=== PATIENT | female | born 1955 | race Caucasian/White ===

== ENCOUNTER 2016-08-15 | Outpatient (CLI) | payer MEDICAID | END 2016-08-15 01:57 | disposition critical access hospital (66) | DX: M25.511 Pain in right shoulder (principal) | CPT/HCPCS: A0425; A0429 ==

== ENCOUNTER 2016-08-15 02:02 | Emergency (ER) | payer MEDICAID ==
[2016-08-15] MEDS ORDERED: KETOROLAC 60 MG/2 ML VIAL IM STA (02:19)
[2016-08-15] MEDS ORDERED: KETOROLAC 60 MG/2 ML VIAL ONE (02:31)
[2016-08-15] MEDS ORDERED: HYDROcod/ACET 5/325 Prepack 6 PO ONE ×2 (02:44→02:47)
[2016-08-15] MEDS ORDERED: HYDROcod/ACETAM 5/325 MG TABLET PO STA (02:44)
[2016-08-15] MEDS ORDERED: HYDROcod/ACETAM 5/325 MG TABLET ONE (02:47)
== END 2016-08-15 03:02 | disposition home or self-care (01) ==
DX: S42.211A Unspecified displaced fracture of surgical neck of right humerus, initial encounter for closed fracture (principal); W19.XXXA Unspecified fall, initial encounter; Y92.009 Unspecified place in unspecified non-institutional (private) residence as the place of occurrence of the external cause; I10 Essential (primary) hypertension; M79.7 Fibromyalgia; F17.200 Nicotine dependence, unspecified, uncomplicated
CPT/HCPCS: 73030; 96372; 99283; A9270

== ENCOUNTER 2016-08-24 11:25 | Day surgery (SDC) | payer MEDICAID ==
[2016-08-24] MEDS ORDERED: ceFAZolin 1 GM VIAL ONE (11:29)
[2016-08-24] MEDS ORDERED: LACTATED RINGERS 1,000 ML IV ONE (11:35)
[2016-08-24] MEDS ORDERED: BUPIVACAINE 0.25%-EPI 1:200000 PF 30 ML VIAL SUBQ ONE ×2 (12:49)
[2016-08-24] MEDS ORDERED: DEXAMETHASONE 4 MG/ML VIAL IVP ONE (13:21)
[2016-08-24] MEDS ORDERED: ONDANSETRON 4 MG/2 ML VIAL IVP ONE (13:21)
[2016-08-24] MEDS ORDERED: ceFAZolin 1 GM VIAL IV ONE (13:21)
[2016-08-24] MEDS ORDERED: LIDOCAINE-MPF 2% 5 ML VIAL IM ONE (13:21)
[2016-08-24] MEDS ORDERED: MIDAZOLAM 2 MG/2 ML VIAL IVP ONE (13:21)
[2016-08-24] MEDS ORDERED: PHENYLEPHRINE 50 MG/5 ML VIAL IV ONE (13:21)
[2016-08-24] MEDS ORDERED: HYDROmorphone 1 MG/ML SYRINGE IVP ONE (13:21)
[2016-08-24] MEDS ORDERED: PROPOFOL 200 MG/20 ML VIAL IVP ONE (13:21)
[2016-08-24] MEDS ORDERED: ACETAMINOPHEN 1,000 MG/100 ML VIAL IV ONE (13:21)
[2016-08-24] MEDS ORDERED: fentaNYL 100 MCG/2 ML VIAL IVP ONE (13:21)
[2016-08-24] MEDS ORDERED: KETOROLAC 30 MG/ML VIAL IVP ONE (13:21)
[2016-08-24] MEDS: HYDROmorphone 1 MG/ML SYRINGE ONE ×6 (14:11→15:01)
[2016-08-24] MEDS: fentaNYL 100 MCG/2 ML VIAL ONE ×3 (14:27→14:43)
[2016-08-24] MEDS ORDERED: ONDANSETRON 4 MG/2 ML VIAL ONE (14:44)
[2016-08-24] MEDS: HYDROcod/ACETAM 5/325 MG TABLET ONE ×2 (15:21→15:25)
== END 2016-08-24 11:26 | disposition home or self-care (01) ==
PROC: 0PSC04Z Reposition Right Humeral Head with Internal Fixation Device, Open Approach (ICD-10-PCS; principal; 2016-08-24 12:30)
DX: S42.221A 2-part displaced fracture of surgical neck of right humerus, initial encounter for closed fracture (principal); Z86.010 Personal history of colon polyps; R12 Heartburn; K44.9 Diaphragmatic hernia without obstruction or gangrene; I10 Essential (primary) hypertension; G47.30 Sleep apnea, unspecified; E03.9 Hypothyroidism, unspecified; M79.7 Fibromyalgia; M19.90 Unspecified osteoarthritis, unspecified site; K21.9 Gastro-esophageal reflux disease without esophagitis; G89.29 Other chronic pain; M54.9 Dorsalgia, unspecified; Z88.2 Allergy status to sulfonamides; Z79.52 Long term (current) use of systemic steroids; Z87.891 Personal history of nicotine dependence; Z79.1 Long term (current) use of non-steroidal anti-inflammatories (NSAID)
CPT/HCPCS: 23615; 73030; A9270; J0131; J1170; J7120

== ENCOUNTER 2016-08-31 09:59 | Outpatient (CLI) | payer MEDICAID | END 2016-08-31 10:00 | disposition home or self-care (01) | DX: E03.9 Hypothyroidism, unspecified (principal); I10 Essential (primary) hypertension; R90.89 Other abnormal findings on diagnostic imaging of central nervous system; M51.36 Other intervertebral disc degeneration, lumbar region; Z71.89 Other specified counseling; D75.89 Other specified diseases of blood and blood-forming organs; E34.9 Endocrine disorder, unspecified; R73.01 Impaired fasting glucose; R79.89 Other specified abnormal findings of blood chemistry ==

== ENCOUNTER 2016-09-28 09:22 | Outpatient (CLI) | payer MEDICAID | END 2016-09-28 09:23 | disposition home or self-care (01) | DX: Z78.0 Asymptomatic menopausal state (principal); M25.511 Pain in right shoulder ==

== ENCOUNTER 2016-09-28 09:36 | Outpatient (CLI) | payer MEDICAID | END 2016-09-28 09:37 | disposition home or self-care (01) | DX: M25.511 Pain in right shoulder (principal) ==

== ENCOUNTER 2016-10-20 11:29 | Outpatient (CLI) | payer MEDICAID | END 2016-10-20 11:30 | disposition home or self-care (01) | DX: S42.201D Unspecified fracture of upper end of right humerus, subsequent encounter for fracture with routine healing (principal) ==

== ENCOUNTER 2016-10-26 13:07 | Outpatient (CLI) | payer MEDICAID ==
--- NOTE | 2016-10-26 18:06 | CT Report ---
EXAM: RIGHT SHOULDER CT WITHOUT CONTRAST EXAM DATE: 10/26/2016 02:36 PM. CLINICAL HISTORY: Two-part displaced fracture of surgical neck right humerus. COMPARISON: Radiographs 10/20/2016. TECHNIQUE: Thin-section axial images were acquired of the shoulder without contrast. Post-processing: Coronal and sagittal reformats. Other: None. In accordance with CT protocol optimization, one or more of the following dose reduction techniques w ere utilized for this exam: automated exposure control, adjustment of mA and/or KV based on patient s ize, or use of iterative reconstructive technique. FINDINGS: Bones and articular surfaces: There are postsurgical changes of internal fixation of the proximal hum erus for comminuted fracture involving the surgical neck. Comminuted fracture lines are still clearly visible. No appreciable hardware loosening. No periprosthetic lucency. No hardware fracture identifi ed. Mild posterior subluxation of the humeral head with respect to the glenoid. Small glenoid margina l osteophyte formation. Osteophyte formation at the acromioclavicular joint. Soft tissues: Small bone fragments are seen within the soft tissues immediately adjacent to the anter omedial and anteroposterior aspect of the proximal humeral shaft. Musculotendinous structures grossly intact. Visualized portion of the right lung well aerated. IMPRESSION: 1. Post surgical change of internal fixation for comminuted fractures involving the surgical neck of the right humerus. No appreciable hardware complication. Fracture lines and small comminuted fragment s still clearly visualized. 2. Mild posterior subluxation of the humeral head with respect to the glenoid. [facility] Referring Provider Line: [phone] SITE ID: [id number]
== END 2016-10-26 13:08 | disposition home or self-care (01) ==
LOC: DI 13:07
PROVIDERS: ATTEND Orthopaedic Surgery
DX: S42.221D 2-part displaced fracture of surgical neck of right humerus, subsequent encounter for fracture with routine healing (principal); S43.001A Unspecified subluxation of right shoulder joint, initial encounter

== ENCOUNTER 2016-11-23 09:02 | Inpatient (IN) | payer MEDICAID ==
[~2016-11-23 09:02] MED LIST: ceFAZolin 2 GM/50 ML 50 ML IV ONE
[2016-11-23] MEDS ORDERED: LACTATED RINGERS 1,000 ML IV ONE ×3 (09:22→13:30)
[2016-11-23] MEDS ORDERED: MIDAZOLAM 2 MG/2 ML VIAL IVP ONE (11:00)
[2016-11-23] MEDS ORDERED: ROCURONIUM 50 MG/5 ML VIAL IVP ONE (11:00)
[2016-11-23] MEDS ORDERED: ePHEDrine 50 MG/ML AMP IVP ONE (11:00)
[2016-11-23] MEDS ORDERED: LIDOCAINE-MPF 2% 5 ML VIAL IM ONE (11:00)
[2016-11-23] MEDS ORDERED: fentaNYL 100 MCG/2 ML VIAL IVP ONE (11:00)
[2016-11-23] MEDS ORDERED: PROPOFOL 200 MG/20 ML VIAL IVP ONE (11:00)
[2016-11-23] MEDS ORDERED: ceFAZolin 1 GM VIAL IV ONE (11:00)
[2016-11-23] MEDS ORDERED: ROPIVACAINE 0.5% PF 20 ML AMPULE EP ONE (11:00)
[2016-11-23] MEDS ORDERED: DEXAMETHASONE 4 MG/ML VIAL IVP ONE (11:00)
[2016-11-23] MEDS ORDERED: GLYCOPYRROLATE 1 MG/5 ML VIAL IVP ONE (11:00)
[2016-11-23] MEDS ORDERED: ONDANSETRON 4 MG/2 ML VIAL IVP ONE (11:00)
[2016-11-23] MEDS ORDERED: NEOSTIGMINE 1 MG/1 ML 10 ML MDV IVP ONE (11:00)
[2016-11-23] MEDS ORDERED: LIDOCAINE 1%-EPI 1:100000 20 ML MDV SUBQ ONE (14:31)
[2016-11-23] MEDS ORDERED: SODIUM CHLORIDE FLUSH 0.9% 10 ML SYRINGE IVP PRN (14:32)
[2016-11-23] MEDS ORDERED: ACETAMINOPHEN 325 MG TABLET PO PRN (14:32)
[2016-11-23] MEDS ORDERED: CYCLOBENZAPRINE 10 MG TABLET PO PRN (14:35)
[2016-11-23] MEDS ORDERED: PANTOPRAZOLE 40 MG TABLET PO PRN (14:35)
[2016-11-23] MEDS ORDERED: TRIAMCINOLONE 0.1% CREAM 15 GM TUBE TOP PRN (14:35)
[2016-11-23] MEDS: LACTATED RINGERS 1,000 ML IV SCH (16:04)
[2016-11-23] MEDS: ceFAZolin 2 GM/50 ML 50 ML IV SCH (18:09)
[2016-11-23] MEDS: oxyCOD/ACETAMIN 5 MG/325 MG TABLET PO PRN (21:06)
[2016-11-23] MEDS: SODIUM CHLORIDE FLUSH 0.9% 10 ML SYRINGE IVP SCH (21:09)
[2016-11-24] MEDS: oxyCOD/ACETAMIN 5 MG/325 MG TABLET PO PRN ×4 (01:40→11:49)
[2016-11-24] MEDS: ceFAZolin 2 GM/50 ML 50 ML IV SCH (01:41)
[2016-11-24] MEDS: LACTATED RINGERS 1,000 ML IV SCH ×2 (01:42→11:51)
[2016-11-24] MEDS: ONDANSETRON 4 MG/2 ML VIAL IVP PRN ×2 (02:09→07:24)
[2016-11-24] MEDS: HYDROmorphone 1 MG/ML SYRINGE IVP PRN ×2 (04:14→05:45)
[2016-11-24] MEDS: SODIUM CHLORIDE FLUSH 0.9% 10 ML SYRINGE IVP SCH ×2 (05:05→08:53)
[2016-11-24] MEDS ORDERED: LEVOTHYROXINE 25 MCG TABLET PO SCH (07:00)
[2016-11-24] MEDS ORDERED: PROCHLORPERAZINE INJ 10 MG in SODIUM CHLORIDE 0.9% 50 ML IV PRN (08:21)
[2016-11-24] MEDS ORDERED: MORPHINE 2 MG/ML SYRINGE IVP PRN (08:22)
[2016-11-24] MEDS ORDERED: KETOROLAC 30 MG/ML VIAL IVP PRN (08:23)
[2016-11-24] MEDS ORDERED: LISINOPRIL 20 MG TABLET PO SCH (09:00)
[2016-11-24] MEDS ORDERED: MINOCYCLINE 100 MG PO SCH (09:00)
[2016-11-24] MEDS ORDERED: POLYETHYLENE GLYCOL 3350 17 GM PACKET PO SCH (09:00)
== END 2016-11-24 16:57 | disposition home or self-care (01) | DRG 483 ==
PROC: 0RRJ00Z Replacement of Right Shoulder Joint with Reverse Ball and Socket Synthetic Substitute, Open Approach (ICD-10-PCS; principal; 2016-11-23 10:15)
DX: S42.221K 2-part displaced fracture of surgical neck of right humerus, subsequent encounter for fracture with nonunion (principal); M94.211 Chondromalacia, right shoulder; I10 Essential (primary) hypertension; I49.9 Cardiac arrhythmia, unspecified; E78.00 Pure hypercholesterolemia, unspecified; E07.9 Disorder of thyroid, unspecified; F32.9 Major depressive disorder, single episode, unspecified; F41.9 Anxiety disorder, unspecified; K30 Functional dyspepsia

== ENCOUNTER 2016-12-08 09:20 | Outpatient (CLI) | payer MEDICAID | END 2016-12-08 09:21 | disposition home or self-care (01) | DX: R90.89 Other abnormal findings on diagnostic imaging of central nervous system (principal); E03.9 Hypothyroidism, unspecified; R79.89 Other specified abnormal findings of blood chemistry; E34.9 Endocrine disorder, unspecified; R73.01 Impaired fasting glucose; D75.89 Other specified diseases of blood and blood-forming organs; Z78.0 Asymptomatic menopausal state; R06.83 Snoring; R00.2 Palpitations; N20.0 Calculus of kidney ==

== ENCOUNTER 2017-03-18 08:08 | Outpatient (CLI) | payer MEDICAID ==
--- NOTE | 2017-03-18 12:22 | XRAY Report ---
TWO-VIEW RIGHT HUMERUS: 03/18/2017 CLINICAL INDICATION: Fracture followup. COMPARISON: 02/21/2017 FINDINGS: Frontal and lateral views of the right humerus obtained with brace in place demonstrate in crease in displacement and angulation of the mid shaft fracture. Proximal humeral prosthesis appears stable. IMPRESSION: INTERVAL INCREASE IN DISPLACEMENT AND ANGULATION OF THE MID SHAFT HUMERAL FRACTURE. JOB #: [id number] EXT JOB #:[id number]
== END 2017-03-18 08:09 | disposition home or self-care (01) ==
LOC: DI 08:08
PROVIDERS: ATTEND Orthopaedic Surgery
DX: M97.31XD Periprosthetic fracture around internal prosthetic right shoulder joint, subsequent encounter (principal)

== ENCOUNTER 2017-04-20 07:13 | Outpatient (CLI) | payer MEDICAID ==
[2017-04-20 07:44] LABS: BASOPHILS % (AUTO) 0.4 %; EOSINOPHILS # (AUTO) 0.2 10^3/uL (0.0-0.7); EOSINOPHILS % (AUTO) 3.2 %; HCT - HEMATOCRIT 45.6 % (37.0-47.0); HGB - HEMOGLOBIN 15.8 g/dL (12.0-16.0); LYMPHOCYTES # (AUTO) 2.1 10^3/uL (1.5-3.5); MEAN CORPUSCULAR HEMOGLOBIN 37.3 pg (27.0-31.0); MEAN CORPUSCULAR HGB CONC 34.7 g/dL (32.0-36.0); MEAN CORPUSCULAR VOLUME 107.7 fL (81.0-99.0); MEAN PLATELET VOLUME 9.3 fL (7.9-10.8); MONOCYTES # (AUTO) 0.6 10^3/uL (0.0-1.0); MONOCYTES % (AUTO) 9.1 %; NEUTROPHILS # (AUTO) 3.4 10^3/uL (1.5-6.6); NEUTROPHILS % (AUTO) 54.3 %; NUCLEATED RED BLOOD CELLS AUTO 0.1 /100WBC; RED BLOOD COUNT 4.23 10^6/uL (4.20-5.40); RED CELL DISTRIBUTION WIDTH 13.5 % (12.0-15.0); UNCORRECTED WHITE BLOOD COUNT 6.3 x10^3/uL; WHITE BLOOD COUNT 6.3 x10^3/uL (4.8-10.8)
[2017-04-20 07:58] LABS: ALBUMIN/GLOBULIN RATIO 1.3 (1.0-2.2); BILIRUBIN,TOTAL 0.7 mg/dL (0.2-1.0); BUN - BLOOD UREA NITROGEN 15 mg/dL (6-20); CALCIUM 9.1 mg/dL (8.5-10.3); CARBON DIOXIDE - CO2 26 mmol/L (21-32); CHLORIDE 102 mmol/L (101-111); CHOL/HDL RATIO 2.6 (<4.4); CHOLESTEROL 232 mg/dL; CREATININE 0.6 mg/dL (0.4-1.0); GFR - MDRD 102 (>89); GLUCOSE 110 mg/dL (70-100); HDL CHOLESTEROL 90 mg/dL; LDL/HDL RATIO 1.3 (<4.4); POTASSIUM 3.9 mmol/L (3.5-5.0); SODIUM 138 mmol/L (135-145); TOTAL PROTEIN 6.7 g/dL (6.7-8.2); TRIGLYCERIDES 121 mg/dL; VLDL CHOLESTEROL 24 mg/dL
== END 2017-04-20 07:14 | disposition home or self-care (01) ==
LOC: LAB 07:13
PROVIDERS: ATTEND Internal Medicine
DX: N20.0 Calculus of kidney (principal); R00.2 Palpitations; R42 Dizziness and giddiness; K75.81 Nonalcoholic steatohepatitis (NASH); Z96.611 Presence of right artificial shoulder joint; R09.81 Nasal congestion; I10 Essential (primary) hypertension; M79.7 Fibromyalgia; F41.8 Other specified anxiety disorders; G47.00 Insomnia, unspecified; R53.83 Other fatigue; E34.9 Endocrine disorder, unspecified
CPT/HCPCS: 36415; 80053; 80061; 84443; 85025

== ENCOUNTER 2017-04-21 10:35 | Outpatient (CLI) | payer MEDICAID ==
[2017-04-21 11:11] LABS: URIC ACID 4.4 mg/dL (2.6-7.2)
[2017-04-23 21:51] LABS: ALPHA 1 GLOBULIN 0.3 g/dL (0.2-0.3); ALPHA 2 GLOBULIN 0.8 g/dL (0.5-0.9); BETA 1 GLOBULIN 0.5 g/dL (0.4-0.6); BETA 2 GLOBULIN 0.3 g/dL (0.2-0.5); GAMMA GLOBULIN 0.8 g/dL (0.8-1.7)
== END 2017-04-21 10:36 | disposition home or self-care (01) ==
LOC: LAB 10:35
PROVIDERS: ATTEND Orthopaedic Surgery
DX: M97.31XD Periprosthetic fracture around internal prosthetic right shoulder joint, subsequent encounter (principal); M80.8 Other osteoporosis with current pathological fracture; M25.511 Pain in right shoulder
CPT/HCPCS: 36415; 84155; 84165; 84550; 85651; 86140

== ENCOUNTER 2017-05-31 06:13 | Inpatient (IN) | payer MEDICAID ==
[2017-05-31] MEDS ORDERED: ceFAZolin 2 GM/50 ML 2 GM/50 ML BAG IV ONE (07:11)
[2017-05-31] MEDS ORDERED: LACTATED RINGERS 1,000 ML IV ONE ×2 (07:22→11:13)
[2017-05-31] MEDS ORDERED: MIDAZOLAM 2 MG/2 ML VIAL IVP ONE (07:43)
[2017-05-31] MEDS ORDERED: LIDOCAINE-MPF 2% 5 ML VIAL IM ONE (07:43)
[2017-05-31] MEDS ORDERED: PROPOFOL 200 MG/20 ML VIAL IVP ONE (07:43)
[2017-05-31] MEDS ORDERED: TRANEXAMIC ACID 1,000 MG/10 ML VIAL IV ONE (07:43)
[2017-05-31] MEDS ORDERED: ROPIVACAINE 0.5% PF 20 ML AMPULE EP ONE (07:43)
[2017-05-31] MEDS ORDERED: ROCURONIUM 50 MG/5 ML VIAL IVP ONE (07:43)
[2017-05-31] MEDS ORDERED: ONDANSETRON 4 MG/2 ML VIAL IVP ONE (07:43)
[2017-05-31] MEDS ORDERED: DEXAMETHASONE 4 MG/ML VIAL IVP ONE (07:43)
[2017-05-31] MEDS ORDERED: fentaNYL 250 MCG/5 ML VIAL IVP ONE (07:43)
[2017-05-31] MEDS ORDERED: BUPIVACAINE 0.25%-EPI 1:200000 PF 30 ML VIAL SUBQ ONE (08:25)
--- NOTE | 2017-05-31 12:02 | OPERATIVE REPORT ---
Operative Report - General Admit Date: 05/31/17 Procedure Date: 05/31/17 Planned Procedure: ORIF right humerus periprosthetic fracture Pre-Op Diagnosis: right humerus periprosthetic fracture Procedure Performed: ORIF right humerus complicated by bone fragmentation] Removal of all internal fixation due to failure of fixation Post Op Diagnosis: Extremely comminuted right humerus periprosthetic fracture - Procedure Note Anesthesia Technique: General ET tube, Regional block IV Fluids (mL): 1,000 Estimated Blood Loss (mL): 250 Complications: progressive comminution of distal humerus, ultimately leading to removal of unstable fixation devices.
[2017-05-31] MEDS ORDERED: ACETAMINOPHEN 325 MG TABLET PO PRN (12:04)
[2017-05-31] MEDS ORDERED: ONDANSETRON 4 MG/2 ML VIAL IVP PRN (12:04)
[2017-05-31] MEDS ORDERED: oxyCOD/ACETAMIN 5 MG/325 MG TABLET PO PRN (12:04)
[2017-05-31] MEDS ORDERED: PROCHLORPERAZINE 10 MG/2 ML VIAL IVP PRN (12:04)
[2017-05-31] MEDS ORDERED: ACETAMINOPHEN 1,000 MG/100 ML 100 ML IV PRN (12:04)
[2017-05-31] MEDS ORDERED: SODIUM CHLORIDE FLUSH 0.9% 10 ML SYRINGE IVP PRN (12:04)
[2017-05-31] MEDS ORDERED: METOCLOPRAMIDE 10 MG/2 ML VIAL ONE (12:30)
[2017-05-31] MEDS ORDERED: CYCLOBENZAPRINE 10 MG TABLET PO PRN (13:06)
[2017-05-31] MEDS: ceFAZolin 2 GM/50 ML 2 GM/50 ML BAG IV SCH ×2 (14:31→22:43)
[2017-05-31] MEDS: SODIUM CHLORIDE 0.45% 1,000 ML IV SCH (14:31)
[2017-05-31] MEDS: traMADol 50 MG TABLET PO SCH ×2 (14:31→22:08)
[2017-05-31] MEDS: PANTOPRAZOLE 40 MG TABLET PO PRN (14:32)
[2017-05-31] MEDS: SODIUM CHLORIDE FLUSH 0.9% 10 ML SYRINGE IVP SCH ×2 (14:32→22:41)
[2017-05-31] MEDS: LISINOPRIL 20 MG TABLET PO SCH (14:33)
[2017-05-31] MEDS: MORPHINE 2 MG/ML SYRINGE IVP PRN ×3 (16:01→22:10)
--- NOTE | 2017-05-31 17:39 | XRAY Report ---
INTRAOPERATIVE RIGHT HUMERUS: 05/31/2017 CLINICAL INDICATION: Fracture fixation. Intraoperative image of the right humerus demonstrates side plate and cerclage wire placement. Six seconds of fluoroscopy time was provided to Dr. Dong. One spot image obtained. IMPRESSION: INTRAOPERATIVE IMAGING OF RIGHT HUMERAL FIXATION. JOB #: [id number] EXT JOB #:[id number]
[2017-06-01] MEDS: MORPHINE 2 MG/ML SYRINGE IVP PRN ×4 (00:07→09:19)
[2017-06-01] MEDS: SODIUM CHLORIDE 0.45% 1,000 ML IV SCH ×2 (01:33→10:12)
[2017-06-01] MEDS: SODIUM CHLORIDE FLUSH 0.9% 10 ML SYRINGE IVP SCH (05:56)
[2017-06-01] MEDS: traMADol 50 MG TABLET PO SCH ×2 (06:37→10:04)
[2017-06-01] MEDS ORDERED: LEVOTHYROXINE 25 MCG TABLET PO SCH (07:00)
[2017-06-01 08:00] VITALS: BP 112/70
--- NOTE | 2017-06-01 08:44 | PROVIDER PROGRESS NOTE ---
Subjective - General Admit Date: 05/31/17 Procedure Date: 05/31/17 Post Op Days: 1 - Review of Systems Wound/Incisions: positive: Drainage General: positive: Fatigue Musculoskeletal: positive: Joint pain, Joint swelling Objective - Patient Data Reviewed Vital Signs: Yes Vital Signs: Vital Signs x48h Temp Pulse Resp BP Pulse Ox 06/01/17 07:59 37.1 C 97 18 112/70 96 06/01/17 06:00 98 100/68 06/01/17 04:28 37.0 C 105 H 18 91/62 97 Weight: Weight 05/30/17 05/31/17 06/01/17 23:59 23:59 23:59 Weight (kg) 87.6 kg Intake & Output: Intake and Output Totals x24h 05/30/17 05/31/17 06/01/17 23:59 23:59 23:59 Intake Total 650 1500 Output Total 100 Balance 550 1500 - Current Medications Current Medications: Current Medications Generic Name Dose Route Start Last Admin Trade Name Freq PRN Reason Stop Dose Admin Sodium Chloride 1,000 mls @ 100 mls/hr 05/31/17 13:00 06/01/17 01:33 Normal Saline 0.45% IV 100 mls/hr .Q10H HALLEY Administration Levothyroxine Sodium 25 mcg 06/01/17 07:00 06/01/17 06:37 Synthroid PO 25 mcg QDAC HALLEY Administration Lisinopril 20 mg 05/31/17 15:00 05/31/17 14:33 Zestril PO 20 mg DAILY HALLEY Administration Morphine Sulfate 2 mg 05/31/17 12:04 06/01/17 06:41 Morphine IVP 2 mg Q2HR PRN Administration PAIN Pantoprazole Sodium 40 mg 05/31/17 12:06 05/31/17 14:32 Protonix PO 40 mg PRN PRN Administration INDIGESTION Sodium Chloride 10 ml 05/31/17 14:00 06/01/17 05:56 Normal Saline Flush 0.9% IVP Not Given Q8HR HALLEY Tramadol HCl 50 mg 05/31/17 14:00 06/01/17 06:37 Ultram PO 50 mg Q8HR HALLEY Administration - Physical Exam Wound/Incisions: positive: Drainage General Appearance: positive: No acute distress Extremities: positive: Joint swelling Neurologic/Psychiatric: positive: Motor nml, Sensation nml, Mood/affect nml Impression/Plan - Problem List Problem List: pod #1 pt would like to be discharged, and pain is under control There is some oozing of dark blood from the upper part of the incision She will require re-splinting and I have asked her to come to the office directly for this Her meds will be issued at the office. Referral will be put in place for Ortho Reconstruction.
[2017-06-01] MEDS: LISINOPRIL 20 MG TABLET PO SCH (08:47)
[2017-06-01] MEDS ORDERED: LORATADINE 10 MG TABLET PO SCH (09:00)
--- NOTE | 2017-06-01 09:05 | Discharge Plan ---
Discharge Plan Disposition: 01 Home, Self Care Condition: Fair Diet: Regular Activity Restrictions: sling/ splint/ no use of right arm Shower Restrictions: Yes (no shower) Driving Restrictions: Yes (no drive) Assistance Devices: Sling Weight Bearing: Full Weight No Smoking: If you smoke, Please STOP! Call for help. Follow-up with: Chandrakant Bolton MD [Primary Care Provider] - Rafal Dong MD [Provider Admit Priv/Credential] -
[2017-06-01] MEDS: PANTOPRAZOLE 40 MG TABLET PO PRN (09:18)
--- NOTE | 2017-06-01 12:49 | OPERATIVE REPORT ---
DATE OF SURGERY: 05/31/2017 00:00:00 PREOPERATIVE DIAGNOSIS: Right humerus mid shaft periprosthetic fracture with displacement and nonunio n. POSTOPERATIVE DIAGNOSIS: Right humerus mid shaft periprosthetic fracture with displacement and nonuni on. NAME OF PROCEDURE: Open reduction with internal fixation of the right humerus complicated by intraope rative distal fragment comminution and subsequent removal of hardware. SURGEON: Rafal Dong MD. ANESTHESIA: General and block by Carolina Eason. INDICATIONS FOR SURGERY: The patient is a 61-year-old female with a complicated history of right uppe r extremity injury beginning with a comminuted 2-part 100% displaced proximal humeral fracture treate d by ORIF with later failure of the plate and fixation, converted to a reverse shoulder arthroplasty. Shortly after that surgery, right at the beginning of use and rehabilitation of the shoulder, the lida brady suffered a fall in home causing a periprosthetic fracture of her humerus, which has been manage d over a course of a few months with bracing with no x-ray evidence of callus formation and perpetual instability noted. The patient has had diminishing pain and has never had neurologic compromise, but clearly is not progressing to union with nonoperative treatment and surgery was recommended. The pat ient did have evidence of osteopenic bone and bone density changes that were evaluated presurgery to rule out infection or malignancy in bone and these workup results were negative. FINDINGS AT SURGERY: The patient's anterolateral exposure was meticulously and with time consuming ef fort, the musculocutaneous nerve and the radial nerve were identified and protected upon entrance. Th e fracture itself showed a periprosthetic fracture with stem and cement showing in the distal part of the proximal fragment. Distally, the patient had very fragile bone initially with no identifying fra cture lines. Extensive mobilization and some stripping was required to try to safely mobilize the bon e and protect nerves and reduce it. In reducing it, the butterfly fragment was generated in the poste rior part of the humerus and the 12-hole NCB [employer] plate was applied to the humerus, cerclage d proximally with very good fixation proximally, and the screws and cerclage were applied distally. T he patient's bone behaved as egg shell and comminuted down to the flare of the distal humerus. Attemp ts at further screw fixation or cerclage wiring were unsuccessful and causing even more comminution. At this point, it was clear that there was not going to be any fixation gained with the devices at [place] and no other option for fixation, so the entire construct of the NCB 12-hole plate and the cerclag e wires were removed, as well as the few attempts at fixation screws that had all failed. The wound w as irrigated thoroughly. The bones with traction were aligned and closure was undertaken by closing t he deep layer with essentially marker sutures of PDS, so that a repeat approach would be more easily identified, and subcutaneous tissues with 0 and 2-0 Vicryl, and skin with will. Sterile dressings were applied. The patient was fitted in a well molded coaptation splint and placed into a sling and t aken to the recovery room in stable condition. ESTIMATED BLOOD LOSS FOR THE PROCEDURE: 250 mL. COMPLICATIONS: Failure of internal fixation, requiring removal of implants. PLAN: Plan postop is for the patient to be immobilized and given pain medication and careful attentio n to wound healing and await further evaluation as her block resolves to ensure neurologic status and ultimately be referred to a reconstructive elbow expert in hopes of the patient having some possibil ity of religious of the humeral integrity. JOB #: [id number] EXT JOB #:[id number]
== END 2017-06-01 10:24 | disposition home or self-care (01) | DRG 493 ==
LOC: MS2 06:13
PROVIDERS: ADMIT Orthopaedic Surgery; ATTEND Orthopaedic Surgery
PROC: 0PS Upper Bones, Reposition (ICD-10-PCS; principal; 2017-05-31 07:30)
DX: S42.351A Displaced comminuted fracture of shaft of humerus, right arm, initial encounter for closed fracture (principal); M97.31XA Periprosthetic fracture around internal prosthetic right shoulder joint, initial encounter; M85.821 Other specified disorders of bone density and structure, right upper arm; I10 Essential (primary) hypertension; E78.00 Pure hypercholesterolemia, unspecified; F32.9 Major depressive disorder, single episode, unspecified; F41.9 Anxiety disorder, unspecified; E07.9 Disorder of thyroid, unspecified; R12 Heartburn; R06.83 Snoring; Z72.0 Tobacco use

== ENCOUNTER 2017-07-18 13:36 | Outpatient (CLI) | payer MEDICAID ==
[2017-07-18 13:56] LABS: BASOPHILS % (AUTO) 0.3 %; EOSINOPHILS # (AUTO) 0.3 10^3/uL (0.0-0.7); EOSINOPHILS % (AUTO) 5.3 %; HCT - HEMATOCRIT 46.7 % (37.0-47.0); HGB - HEMOGLOBIN 15.8 g/dL (12.0-16.0); LYMPHOCYTES # (AUTO) 1.8 10^3/uL (1.5-3.5); LYMPHOCYTES % (AUTO) 38.5 %; MEAN CORPUSCULAR HEMOGLOBIN 36.2 pg (27.0-31.0); MEAN CORPUSCULAR HGB CONC 33.8 g/dL (32.0-36.0); MEAN PLATELET VOLUME 8.3 fL (7.9-10.8); MONOCYTES # (AUTO) 0.6 10^3/uL (0.0-1.0); MONOCYTES % (AUTO) 13.1 %; NEUTROPHILS % (AUTO) 42.8 %; RED BLOOD COUNT 4.37 10^6/uL (4.20-5.40); RED CELL DISTRIBUTION WIDTH 13.6 % (12.0-15.0); UNCORRECTED WHITE BLOOD COUNT 4.7 x10^3/uL; WHITE BLOOD COUNT 4.7 x10^3/uL (4.8-10.8)
[2017-07-18 14:09] LABS: ALBUMIN/GLOBULIN RATIO 1.2 (1.0-2.2); BILIRUBIN,TOTAL 0.7 mg/dL (0.2-1.0); CREATININE 0.4 mg/dL (0.4-1.0); POTASSIUM 3.9 mmol/L (3.5-5.0); TOTAL PROTEIN 6.6 g/dL (6.7-8.2)
[2017-07-18 14:50] LABS: THYROID STIMULATING HORMONE 1.49 uIU/mL (0.34-5.60)
[2017-07-20 12:42] LABS: ANA SCREEN NEGATIVE (NEGATIVE)
== END 2017-07-18 13:37 | disposition home or self-care (01) ==
LOC: LAB 13:36
PROVIDERS: ATTEND Orthopaedic Surgery
DX: R06.02 Shortness of breath (principal); R00.0 Tachycardia, unspecified; R23.1 Pallor; K75.81 Nonalcoholic steatohepatitis (NASH); I10 Essential (primary) hypertension; E03.9 Hypothyroidism, unspecified
CPT/HCPCS: 36415; 80053; 84439; 84443; 85025; 85651; 86038; 86140

== ENCOUNTER 2017-08-20 15:55 | Outpatient (CLI) | payer MEDICAID ==
[2017-08-20 16:55] LABS: BILIRUBIN,DIRECT 0.1 mg/dL (0.1-0.5); BILIRUBIN,INDIRECT 0.2 mg/dL; BILIRUBIN,TOTAL 0.3 mg/dL (0.2-1.0); CALCIUM 8.9 mg/dL (8.5-10.3); GAMMA GLUTAMYL TRANSPEPTIDASE 101 IU/L (8-38); MAGNESIUM 1.6 mg/dL (1.7-2.8); PHOSPHORUS 4.8 mg/dL (2.5-4.6)
[2017-08-20 17:21] LABS: THYROID STIMULATING HORMONE 1.06 uIU/mL (0.34-5.60)
== END 2017-08-20 15:56 | disposition home or self-care (01) ==
LOC: LAB 15:55
PROVIDERS: ATTEND Orthopaedic Surgery
DX: M81.0 Age-related osteoporosis without current pathological fracture (principal)
CPT/HCPCS: 36415; 82247; 82248; 82306; 82310; 82652; 82977; 83735; 83970; 84100; 84443

== ENCOUNTER 2017-08-28 07:42 | Outpatient (CLI) | payer MEDICAID ==
[2017-08-28 08:22] LABS: ALBUMIN 3.4 g/dL (3.2-5.5); ALBUMIN/GLOBULIN RATIO 1.2 (1.0-2.2); BILIRUBIN,TOTAL 0.3 mg/dL (0.2-1.0); CALCIUM 8.8 mg/dL (8.5-10.3); CREATININE 0.6 mg/dL (0.4-1.0); TOTAL PROTEIN 6.2 g/dL (6.7-8.2)
[2017-08-28 08:58] LABS: HB2 TOTAL 15.2 g/dL; HEMOGLOBIN A1C 0.47 g/dL
== END 2017-08-28 07:43 | disposition home or self-care (01) ==
LOC: LAB 07:42
PROVIDERS: ATTEND Internal Medicine
DX: E03.9 Hypothyroidism, unspecified (principal); N20.0 Calculus of kidney; M51.36 Other intervertebral disc degeneration, lumbar region; R79.89 Other specified abnormal findings of blood chemistry; E34.9 Endocrine disorder, unspecified; I10 Essential (primary) hypertension; R73.01 Impaired fasting glucose; D75.89 Other specified diseases of blood and blood-forming organs; R00.0 Tachycardia, unspecified; R42 Dizziness and giddiness; Z71.89 Other specified counseling; Z96.611 Presence of right artificial shoulder joint
CPT/HCPCS: 36415; 80053; 81599; 83036; 84402; 84403

== ENCOUNTER 2017-11-02 14:19 | Outpatient (CLI) | payer MEDICAID ==
[2017-11-02 14:50] LABS: PT - PROTHROMBIN TIME 11.1 secs (9.9-12.6)
[2017-11-02 14:57] LABS: ALBUMIN/GLOBULIN RATIO 1.5 (1.0-2.2); BILIRUBIN,DIRECT 0.1 mg/dL (0.1-0.5); BILIRUBIN,TOTAL 0.6 mg/dL (0.2-1.0); CALCIUM 9.2 mg/dL (8.5-10.3); CREATININE 0.5 mg/dL (0.4-1.0); TOTAL PROTEIN 6.6 g/dL (6.7-8.2)
== END 2017-11-02 14:20 | disposition home or self-care (01) ==
LOC: LAB 14:19
PROVIDERS: ATTEND Physician Assistant
DX: M85.80 Other specified disorders of bone density and structure, unspecified site (principal); M97.31XD Periprosthetic fracture around internal prosthetic right shoulder joint, subsequent encounter
CPT/HCPCS: 36415; 80053; 80076; 82248; 85610

== ENCOUNTER 2018-02-06 14:14 | Outpatient (CLI) | payer MEDICAID ==
[2018-02-06 15:18] LABS: ALBUMIN 3.8 g/dL (3.2-5.5); ALBUMIN/GLOBULIN RATIO 1.3 (1.0-2.2); BILIRUBIN,TOTAL 0.5 mg/dL (0.2-1.0); CALCIUM 9.2 mg/dL (8.5-10.3); CREATININE 0.6 mg/dL (0.4-1.0); MAGNESIUM 1.8 mg/dL (1.7-2.8); TOTAL PROTEIN 6.8 g/dL (6.7-8.2)
--- NOTE | 2018-02-06 23:29 | Ultrasound Report ---
Procedure Date: 02/06/2018 Accession Number: [id number] / [id number] Procedure: US - Duplex Upr Ext Arterial RT CPT Code: FULL RESULT: EXAM: RIGHT UPPER EXTREMITY ARTERIAL DOPPLER ULTRASOUND EXAM DATE: 02/06/2018 04:21 PM. CLINICAL HISTORY: Pain and swelling after fracture. COMPARISON: None. TECHNIQUE: Real-time sonographic vascular imaging was performed by the research associate policy, utilizing color-flow, Doppler flow, and spectral analysis. Multiple sales representative metals static images were saved for review. FINDINGS: Right Upper Extremity Velocities: Subclavian prox: 77 cm/s. Subclavian distal: 42 cm/s. Axillary mid: 46 cm/s. Brachial prox: 74 cm/s. Brachial dist: 81 cm/s. Radial prox: 54 cm/s. Radial distal: 46 cm/s. Ulnar prox: 58 cm/s Ulnar dist: 44 cm/s. IMPRESSION: No hemodynamically significant stenosis or dissection identified. [facility]
== END 2018-02-06 14:15 | disposition home or self-care (01) ==
LOC: DI 14:14
PROVIDERS: ATTEND Internal Medicine
DX: E83.42 Hypomagnesemia (principal); E55.9 Vitamin D deficiency, unspecified; E88.09 Other disorders of plasma-protein metabolism, not elsewhere classified; M19.011 Primary osteoarthritis, right shoulder; M19.021 Primary osteoarthritis, right elbow; M85.88 Other specified disorders of bone density and structure, other site; Z96.611 Presence of right artificial shoulder joint; S42.391D Other fracture of shaft of right humerus, subsequent encounter for fracture with routine healing
CPT/HCPCS: 36415; 80053; 82306; 83735

== ENCOUNTER 2018-02-06 14:16 | Outpatient (CLI) | payer MEDICAID ==
--- NOTE | 2018-02-06 15:04 | XRAY Report ---
Procedure Date: 02/06/2018 Accession Number: [id number] / [id number] Procedure: XR - Shoulder 2 View RT CPT Code: FULL RESULT: EXAM: Shoulder 2 View RT DATE: 02/06/2018 2:58 PM CLINICAL HISTORY: CLOSED FRACTURE OF SHAFT OF RT HUMERUS/LOCALIZED O COMPARISON: None. TECHNIQUE: 2 views. FINDINGS: Bones: Glenohumeral joint replacement is in place. No acute fracture. Joints: Glenohumeral joint replacement in place. Degenerative changes of the acromioclavicular joint. Soft tissues: The visualized hemithorax is unremarkable. No soft tissue swelling. IMPRESSION: Right glenohumeral joint replacement. No evidence of fracture or hardware complication. Degenerative changes in the acromioclavicular joint. [facility]
--- NOTE | 2018-02-06 15:07 | XRAY Report ---
Procedure Date: 02/06/2018 Accession Number: [id number] / [id number] Procedure: XR - Humerus RT CPT Code: FULL RESULT: EXAM: Humerus RT DATE: 02/06/2018 2:58 PM CLINICAL HISTORY: CLOSED FRACTURE OF SHAFT OF RT HUMERUS/LOCALIZED O COMPARISON: 07/25/2017 TECHNIQUE: 2 views. FINDINGS: Bones: There has been continued destruction and resorption of the distal humeral shaft, with no evidence of contiguous bone. Joints: Right humeral head replacement. Degenerative changes in the elbow joint. Soft Tissues: Normal. No soft tissue swelling. IMPRESSION: Continued destruction and resorption of the distal humeral shaft. [facility]
--- NOTE | 2018-02-06 15:07 | XRAY Report ---
Procedure Date: 02/06/2018 Accession Number: [id number] / [id number] Procedure: XR - Forearm RT CPT Code: FULL RESULT: EXAM: Forearm RT DATE: 02/06/2018 2:58 PM CLINICAL HISTORY: CLOSED FRACTURE OF SHAFT OF RT HUMERUS/LOCALIZED O COMPARISON: None. TECHNIQUE: 2 views. FINDINGS: Bones: Osteopenia. No evidence of forearm fracture. Joints: Visualized portions of the wrist and elbow joints are unremarkable. Soft Tissues: Normal. No soft tissue swelling. IMPRESSION: Osteopenia. No evidence of forearm fracture. [facility]
== END 2018-02-06 14:17 | disposition home or self-care (01) ==
LOC: DI 14:16
PROVIDERS: ATTEND Orthopaedic Surgery
DX: M19.011 Primary osteoarthritis, right shoulder (principal); M19.021 Primary osteoarthritis, right elbow; M85.88 Other specified disorders of bone density and structure, other site; Z96.611 Presence of right artificial shoulder joint; S42.391D Other fracture of shaft of right humerus, subsequent encounter for fracture with routine healing

== ENCOUNTER 2018-06-26 09:09 | Outpatient (CLI) | payer MEDICAID ==
[2018-06-26 09:53] LABS: BASOPHILS # (AUTO) 0.1 10^3/uL (0.0-0.1); BASOPHILS % (AUTO) 1.4 %; EOSINOPHILS # (AUTO) 0.1 10^3/uL (0.0-0.7); EOSINOPHILS % (AUTO) 2.2 %; HGB - HEMOGLOBIN 16.7 g/dL (12.0-16.0); LYMPHOCYTES # (AUTO) 1.3 10^3/uL (1.5-3.5); LYMPHOCYTES % (AUTO) 23.9 %; MEAN CORPUSCULAR HEMOGLOBIN 37.6 pg (27.0-31.0); MEAN CORPUSCULAR HGB CONC 35.1 g/dL (32.0-36.0); MEAN CORPUSCULAR VOLUME 107.3 fL (81.0-99.0); MEAN PLATELET VOLUME 8.8 fL (7.9-10.8); MONOCYTES # (AUTO) 0.7 10^3/uL (0.0-1.0); MONOCYTES % (AUTO) 12.6 %; NEUTROPHILS # (AUTO) 3.2 10^3/uL (1.5-6.6); NEUTROPHILS % (AUTO) 59.9 %; PLT - PLATELET COUNT 142 10^3/uL (130-450); RED BLOOD COUNT 4.44 10^6/uL (4.20-5.40); RED CELL DISTRIBUTION WIDTH 13.8 % (12.0-15.0); WHITE BLOOD COUNT 5.4 x10^3/uL (4.8-10.8)
[2018-06-26 10:11] LABS: ALBUMIN 3.8 g/dL (3.2-5.5); ALBUMIN/GLOBULIN RATIO 1.2 (1.0-2.2); ALKALINE PHOSPHATASE 134 IU/L (42-121); ALT ALANINE AMINOTRANSFERASE 129 IU/L (10-60); AST ASPARTATE AMINOTRANSFERASE 199 IU/L (10-42); BILIRUBIN,TOTAL 1.3 mg/dL (0.2-1.0); BUN - BLOOD UREA NITROGEN 9 mg/dL (6-20); CALCIUM 9.2 mg/dL (8.5-10.3); CARBON DIOXIDE - CO2 28 mmol/L (21-32); CHLORIDE 100 mmol/L (101-111); CHOL/HDL RATIO 2.9 (<4.4); CHOLESTEROL 252 mg/dL; CREATININE 0.6 mg/dL (0.4-1.0); GFR - MDRD 102 (>89); GLUCOSE 111 mg/dL (70-100); HDL CHOLESTEROL 88 mg/dL; LDL CHOLESTEROL,CALCULATED 140 mg/dL; LDL/HDL RATIO 1.6 (<4.4); MAGNESIUM 1.7 mg/dL (1.7-2.8); SODIUM 138 mmol/L (135-145); TOTAL PROTEIN 6.9 g/dL (6.7-8.2); VLDL CHOLESTEROL 24 mg/dL
== END 2018-06-26 09:10 | disposition home or self-care (01) ==
LOC: LAB 09:09
PROVIDERS: ATTEND Internal Medicine
DX: I10 Essential (primary) hypertension (principal); E83.42 Hypomagnesemia
CPT/HCPCS: 36415; 80053; 80061; 83721; 83735; 85025

== ENCOUNTER 2018-06-28 08:25 | Outpatient (CLI) | payer MEDICAID ==
--- NOTE | 2018-06-29 15:40 | Mammography Report ---
Reason: SCREENING MAMMO Procedure Date: 06/28/2018 Accession Number: [id number] / [id number] Procedure: [facility] - Screening Mammo w/Ben CPT Code: FULL RESULT: EXAM: Screening Mammo w/Ben DATE: 06/28/2018 8:53 AM CLINICAL HISTORY: Routine screening. TECHNIQUE: Bilateral CC and MLO views were obtained. COMPARISON: 06/07/2016 through 10/11/2012 FINDINGS: The breasts demonstrate scattered fibroglandular densities bilaterally. Bilateral breasts: There are no suspicious masses, calcifications or areas of distortion. IMPRESSION: Negative examination RECOMMENDATION: Routine annual screening unless otherwise clinically indicated. BI-RADS CATEGORY 1: Negative STANDARD QUALIFYING STATEMENTS: 1. This examination was not reviewed with the aid of Computer-Aided Detection (CAD). 2. A negative or benign imaging report should not preclude biopsy if clinically suspicious findings are present. 3. Dense breasts may obscure an underlying neoplasm. 4. This examination was reviewed with the aid of 3D breast imaging (tomosynthesis).
== END 2018-06-28 08:26 | disposition home or self-care (01) ==
LOC: DI 08:25
PROVIDERS: ATTEND Internal Medicine
DX: Z12.31 Encounter for screening mammogram for malignant neoplasm of breast (principal)
CPT/HCPCS: 77063; 77067

== ENCOUNTER 2018-08-11 17:56 | Outpatient (CLI) | payer MEDICAID ==
--- NOTE | 2018-08-14 10:24 | Ultrasound Report ---
Reason: DECREASED PEDAL PULSES Procedure Date: 08/11/2018 Accession Number: [id number] / [id number] Procedure: US - Duplex Lwr Ext Arterial Bilat CPT Code: FULL RESULT: EXAM: Bilateral Lower Extremity Arterial Doppler Ultrasound EXAM DATE: 08/11/2018 07:00 PM. CLINICAL HISTORY: DECREASED PEDAL PULSES. COMPARISON: None. TECHNIQUE: Real-time sonographic vascular imaging was performed by the control panel operator crude unit, utilizing color-flow, Doppler flow, and spectral analysis. Multiple medical representative static images were saved for review. FINDINGS: Normal triphasic waveforms are seen throughout both lower extremity arterial systems with three-vessel patency to the ankle bilaterally and good flow in both dorsalis pedis arteries. Transcription to insert worksheet here. IMPRESSION: Normal arterial duplex interrogation and normal MYESHA bilaterally. [facility] ADDENDUM: 08/18/18 14:02 Right Lower Extremity: FLOWER PICKER: PSV 80.7 cm/sec. PSFA: PSV 87.9 cm/sec. MSFA: PSV 93.5 cm/sec. DSFA: PSV 90.7 cm/sec. PFA: PSV 76.7 cm/sec. POP: PSV 51.5 cm/sec. ZOILA: PSV 54.3 cm/sec. SENIOR PHARMACY TECHNICIAN: PSV 48.2 cm/sec. PB: PSV 53.7 cm/sec. DPA: PSV 45.9 cm/sec. Left Lower Extremity: FLOWER PICKER: PSV 109.2 cm/sec. PSFA: PSV 92.4 cm/sec. MSFA: PSV 91.5 cm/sec. DSFA: PSV 89.2 cm/sec. PFA: PSV 72.5 cm/sec. POP: PSV 56.2 cm/sec. ZOILA: PSV 50.0 cm/sec. SENIOR PHARMACY TECHNICIAN: PSV 52.3 cm/sec. PB: PSV 45.1 cm/sec. DPA: PSV 30.0 cm/sec. Systolic Pressures Right Brachial: 178/88 Right Ankle: 187/90 Left Brachial: 165/90 Left Ankle: 177/100 Ankle/Arm Index Right: 1.05 Left: 1.07
== END 2018-08-11 17:57 | disposition home or self-care (01) ==
LOC: DI 17:56
PROVIDERS: ATTEND Anesthesiology
DX: R09.89 Other specified symptoms and signs involving the circulatory and respiratory systems (principal)
CPT/HCPCS: 93925

== ENCOUNTER 2018-10-25 17:02 | Outpatient (CLI) | payer MEDICARE, MEDICAID ==
[2018-10-25 17:15] LABS: BASOPHILS # (AUTO) 0.1 10^3/uL (0.0-0.1); BASOPHILS % (AUTO) 1.2 %; EOSINOPHILS # (AUTO) 0.1 10^3/uL (0.0-0.7); EOSINOPHILS % (AUTO) 1.1 %; HGB - HEMOGLOBIN 15.9 g/dL (12.0-16.0); LYMPHOCYTES # (AUTO) 2.6 10^3/uL (1.5-3.5); LYMPHOCYTES % (AUTO) 31.4 %; MEAN CORPUSCULAR HEMOGLOBIN 34.2 pg (27.0-31.0); MEAN CORPUSCULAR HGB CONC 33.6 g/dL (32.0-36.0); MEAN CORPUSCULAR VOLUME 101.6 fL (81.0-99.0); MEAN PLATELET VOLUME 9.2 fL (7.9-10.8); MONOCYTES # (AUTO) 0.8 10^3/uL (0.0-1.0); MONOCYTES % (AUTO) 9.5 %; NEUTROPHILS # (AUTO) 4.8 10^3/uL (1.5-6.6); NEUTROPHILS % (AUTO) 56.8 %; PLT - PLATELET COUNT 197 10^3/uL (130-450); RED BLOOD COUNT 4.65 10^6/uL (4.20-5.40); WHITE BLOOD COUNT 8.4 x10^3/uL (4.8-10.8)
[2018-10-25 17:29] LABS: ALBUMIN 3.9 g/dL (3.2-5.5); ALBUMIN/GLOBULIN RATIO 1.2 (1.0-2.2); BILIRUBIN,TOTAL 0.4 mg/dL (0.2-1.0); CALCIUM 9.2 mg/dL (8.5-10.3); CREATININE 0.6 mg/dL (0.4-1.0); TOTAL PROTEIN 7.1 g/dL (6.7-8.2)
== END 2018-10-25 17:03 | disposition home or self-care (01) ==
LOC: LAB 17:02
PROVIDERS: ATTEND Internal Medicine
DX: D75.1 Secondary polycythemia (principal); I10 Essential (primary) hypertension; Z78.9 Other specified health status
CPT/HCPCS: 36415; 80053; 85025

== ENCOUNTER 2018-11-20 11:07 | Outpatient (CLI) | payer MEDICARE, MEDICAID ==
[2018-11-20] MEDS ORDERED: IOVERSOL 320 100 ML VIAL IVP ONE ×2 (11:26→17:00)
[2018-11-20] MEDS ORDERED: IOPAMIDOL-300 50 ML VIAL ONE (11:26)
--- NOTE | 2018-11-20 15:41 | CT Report ---
Reason: LIVEDO RETICULARIS Procedure Date: 11/20/2018 Accession Number: [id number] / [id number] Procedure: CT - Abdomen/Pelvis W CPT Code: FULL RESULT: EXAM: CT ABDOMEN AND PELVIS WITH CONTRAST. EXAM DATE: 11/20/2018 01:20 PM. CLINICAL HISTORY: Livedo reticularis. COMPARISONS: ABDOMEN/PELVIS W/ 08/23/2013 5:18 PM. TECHNIQUE: Routine helical CT imaging was performed through the abdomen and pelvis. IV contrast: Isovue-300 100 mL. Enteric contrast: Yes. Reconstructions: Coronal and sagittal. In accordance with CT protocol optimization, one or more of the following dose reduction techniques were utilized for this exam: automated exposure control, adjustment of mA and/or KV based on patient size, or use of iterative reconstructive technique. FINDINGS: Lung Bases: Unremarkable. Liver: Relatively hypoattenuating with mild sparing in the gallbladder region, mild steatosis. Gallbladder/Bile Ducts: Unremarkable. Spleen: Normal. Pancreas: Normal. Adrenal Glands: Normal. Kidneys: 0.8 cm nonobstructing left lower pole calculus. No hydronephrosis. Peritoneal Cavity/Bowel: No bowel obstruction. No free fluid, free air or adenopathy. No masses or acute inflammatory process. The appendix is well visualized and normal. Pelvic Organs: Surgical clips are seen along both fallopian tubes with ovaries still visualized. Punctate hyperdensities are seen in the left ovary. Vasculature: Atherosclerotic disease without aneurysm. Bones: No aggressive osseous lesions. Other: None. IMPRESSION: Nonobstructing left lower pole renal calculus, 0.8 cm. Suspect prior tubal ligation. Punctate hyperdensities in the left ovary may represent a small dermoid which is not well seen. If this is of clinical relevance, consider pelvic ultrasound. [facility]
[2018-11-20] MEDS ORDERED: IOPAMIDOL-300 50 ML VIAL PO ONE (17:00)
== END 2018-11-20 11:08 | disposition home or self-care (01) ==
LOC: DI 11:07
PROVIDERS: ATTEND Student in an Organized Health Care Education/Training Program
DX: R23.1 Pallor (principal); N20.0 Calculus of kidney
CPT/HCPCS: 74177; Q9967

== ENCOUNTER 2019-02-27 10:09 | Outpatient (CLI) | payer MEDICARE, MEDICAID ==
[2019-02-27 10:51] LABS: BASOPHILS # (AUTO) 0.1 10^3/uL (0.0-0.1); EOSINOPHILS # (AUTO) 0.2 10^3/uL (0.0-0.7); EOSINOPHILS % (AUTO) 3.1 %; HGB - HEMOGLOBIN 16.1 g/dL (12.0-16.0); LYMPHOCYTES # (AUTO) 1.1 10^3/uL (1.5-3.5); LYMPHOCYTES % (AUTO) 15.3 %; MEAN CORPUSCULAR HEMOGLOBIN 35.5 pg (27.0-31.0); MEAN CORPUSCULAR HGB CONC 33.3 g/dL (32.0-36.0); MEAN CORPUSCULAR VOLUME 106.6 fL (81.0-99.0); MEAN PLATELET VOLUME 10.9 fL (7.9-10.8); MONOCYTES # (AUTO) 0.8 10^3/uL (0.0-1.0); NEUTROPHILS % (AUTO) 68.9 %; PLT - PLATELET COUNT 160 10^3/uL (130-450); RED BLOOD COUNT 4.53 10^6/uL (4.20-5.40); RED CELL DISTRIBUTION WIDTH 13.2 % (12.0-15.0); WHITE BLOOD COUNT 7.2 x10^3/uL (4.8-10.8)
[2019-02-27 11:26] LABS: ALBUMIN 3.4 g/dL (3.2-5.5); ALBUMIN/GLOBULIN RATIO 1.1 (1.0-2.2); BILIRUBIN,TOTAL 0.7 mg/dL (0.2-1.0); CALCIUM 9.1 mg/dL (8.5-10.3); CREATININE 0.5 mg/dL (0.4-1.0); TOTAL PROTEIN 6.6 g/dL (6.7-8.2)
== END 2019-02-27 10:10 | disposition home or self-care (01) ==
LOC: LAB 10:09
PROVIDERS: ATTEND Internal Medicine
DX: I10 Essential (primary) hypertension (principal); R94.5 Abnormal results of liver function studies; E03.9 Hypothyroidism, unspecified
CPT/HCPCS: 36415; 80053; 85025

== ENCOUNTER 2019-03-18 16:03 | Emergency (ER) | payer MEDICARE, MEDICAID ==
[2019-03-18 16:52] LABS: BASOPHILS # (AUTO) 0.1 10^3/uL (0.0-0.1); BASOPHILS % (AUTO) 1.1 %; EOSINOPHILS # (AUTO) 0.2 10^3/uL (0.0-0.7); EOSINOPHILS % (AUTO) 2.6 %; HGB - HEMOGLOBIN 16.9 g/dL (12.0-16.0); LYMPHOCYTES # (AUTO) 1.6 10^3/uL (1.5-3.5); LYMPHOCYTES % (AUTO) 21.7 %; MEAN CORPUSCULAR HEMOGLOBIN 35.6 pg (27.0-31.0); MEAN CORPUSCULAR HGB CONC 33.9 g/dL (32.0-36.0); MEAN CORPUSCULAR VOLUME 104.8 fL (81.0-99.0); MEAN PLATELET VOLUME 10.5 fL (7.9-10.8); MONOCYTES # (AUTO) 0.8 10^3/uL (0.0-1.0); MONOCYTES % (AUTO) 10.6 %; NEUTROPHILS # (AUTO) 4.8 10^3/uL (1.5-6.6); NEUTROPHILS % (AUTO) 63.3 %; PLT - PLATELET COUNT 185 10^3/uL (130-450); RED BLOOD COUNT 4.75 10^6/uL (4.20-5.40); RED CELL DISTRIBUTION WIDTH 12.9 % (12.0-15.0); WHITE BLOOD COUNT 7.6 x10^3/uL (4.8-10.8)
--- NOTE | 2019-03-18 16:54 | XRAY Report ---
Reason: Cp Procedure Date: 03/18/2019 Accession Number: [id number] / [id number] Procedure: XR - Chest 1 View X-Ray CPT Code: 28801 FULL RESULT: EXAM: CHEST RADIOGRAPHY EXAM DATE: 03/18/2019 04:40 PM. CLINICAL HISTORY: Chest pain. COMPARISON: CHEST 2 VIEW PA/LAT 05/23/2016 8:51 PM. TECHNIQUE: 1 view. FINDINGS: Lungs/Pleura: Mild bibasilar linear opacities again noted, suspect scarring or atelectasis. No consolidation, airspace disease, pleural effusion or pneumothorax. Mediastinum: Within exam limitations, the cardiomediastinal contour is normal. Other: New right shoulder arthroplasty. IMPRESSION: No acute cardiopulmonary disease seen. [facility]
[2019-03-18] MEDS ORDERED: SODIUM CHLORIDE 0.9% 1,000 ML IV ONE (17:02)
[2019-03-18 17:05] LABS: ALBUMIN 3.5 g/dL (3.2-5.5); ALBUMIN/GLOBULIN RATIO 1.1 (1.0-2.2); BILIRUBIN,TOTAL 0.5 mg/dL (0.2-1.0); CALCIUM 9.5 mg/dL (8.5-10.3); CREATININE 0.6 mg/dL (0.4-1.0); TOTAL PROTEIN 6.8 g/dL (6.7-8.2)
--- NOTE | 2019-03-18 17:23 | ED Physician Documentation ---
History of Present Illness - Stated complaint Stated Complaint: CP/NAUSEA/DIZZY - Chief complaint Chief Complaint: Cardiac - History obtained from History obtained from: Patient, Family - History of Present Illness Timing: How many weeks ago (several) Pain level max: 4 Pain level now: 3 - Additonal information Additional information: 63-year-old female presents to the emergency department complaining of chest pain for the past 2 to 3 days. Sometimes it is on her back, sometimes it is in her chest. She states that she has had several of these symptoms for months to years. She states she has had extensive work-ups in the past of all been negative. She has been evaluated by cardiology for her resting sinus tachycardia, she states that she was placed on metoprolol for this at one time. She states that she often feels sweaty during the day. She will also feel out of breath walking up the stairs. No recent illness or travel. Her significant other is currently undergoing chemotherapy. She feels like these represent panic attacks. She was brought in today by her sister. Better with rest, worse with exertion. Review of Systems Ten Systems: 10 systems reviewed and negative Constitutional: denies: Fever, Chills Ears: denies: Ear pain Nose: denies: Rhinorrhea / runny nose, Congestion Throat: denies: Sore throat Respiratory: denies: Cough GI: denies: Vomiting, Diarrhea Skin: denies: Rash Musculoskeletal: denies: Neck pain, Back pain Neurologic: denies: Headache PD PAST MEDICAL HISTORY - Past Medical History Past Medical History: Yes Cardiovascular: Hypertension Respiratory: Emphysema, Sleep apnea Neuro: None Endocrine/Autoimmune: HyPOthyroidism GI: GERD, Colon polyps ISSUE CLERK: None : Kidney stones HEENT: Chronic vision loss Psych: Depression, Anxiety Musculoskeletal: Osteoarthritis, Fibromyalgia, Other Derm: Other - Past Surgical History Past Surgical History: Yes General: Colonoscopy Ortho: Other /ISSUE CLERK: Tubal ligation HEENT: Tonsil/Adenoidectomy - Present Medications Home Medications: Ambulatory Orders Medication Instructions Recorded Confirmed Levothyroxine [Synthroid] 25 mcg PO QDAC 10/14/14 05/23/17 Omeprazole [PriLOSEC] 20 mg PO PRN PRN 06/09/15 05/31/17 Lisinopril 20 mg PO DAILY 05/11/16 05/31/17 Cyclobenzaprine [Flexeril] 5 - 20 mg PO QPM PRN 05/12/16 05/23/17 Celecoxib [Celebrex] 200 mg PO DAILY 08/23/16 05/31/17 Acetaminophen [Tylenol] 650 - 975 mg PO Q4HR PRN #0 tablet 11/24/16 05/23/17 Hydrocodone/Acetaminophen 1 tab PO Q6H PRN 05/31/17 05/31/17 [Hydrocodone-Acetamin 5-325 mg] Loratadine [Claritin] 10 mg PO DAILY 05/31/17 05/31/17 Acetaminophen [Tylenol] 650 - 975 mg PO Q4HR PRN tablet 06/01/17 Cyclobenzaprine [Flexeril] 15 mg PO TID PRN tablet 06/01/17 Levothyroxine [Synthroid] 25 mcg PO QDAC tablet 06/01/17 Albuterol Sulf [Ventolin Hfa 1 - 2 puffs INH Q4HR PRN #1 inhaler 03/18/19 Inhaler] predniSONE [Deltasone] 10 mg PO [id number] #42 tab 03/18/19 - Allergies Allergies/Adverse Reactions: Allergies Allergy/AdvReac Type Severity Reaction Status Date / Time Sulfa (Sulfonamide Allergy Intermediate Rash Verified 03/18/19 16:15 Antibiotics) - Social History Does the pt smoke?: Yes Smoking Status: Current every day smoker Does the pt drink ETOH?: Yes Does the pt have substance abuse?: No - Immunizations Immunizations are current?: Yes - POLST Patient has POLST: No PD ED PE NORMAL - Vitals Vital signs reviewed: Yes - General General: Alert and oriented X 3, No acute distress - HEENT HEENT: PERRL, Moist mucous membranes - Neck Neck: Supple, no meningeal sign - Cardiac Cardiac: RRR, No murmur, Strong equal pulses - Respiratory Respiratory: No respiratory distress, Clear bilaterally - Abdomen Abdomen: Soft, Non tender, Non distended - Derm Derm: Warm and dry - Extremities Extremities: No edema, Other (Dark color to the feet, but good pulses. Cool to the touch. Patient states chronic and no change) - Neuro Neuro: Alert and oriented X 3 - Psych Psych: Normal mood, Normal affect Results - Vitals Vitals: Vital Signs - 24 hr 03/18/19 03/18/19 03/18/19 16:08 16:45 17:07 Temperature 36.5 C Heart Rate 105 H 90 Respiratory 17 18 Rate Blood Pressure 119/76 129/85 H Blood Pressure 126/85 H [Left] O2 Saturation 99 97 03/18/19 03/18/19 03/18/19 17:15 17:30 18:30 Temperature Heart Rate 72 73 71 Respiratory 17 16 19 Rate Blood Pressure 126/85 H 116/83 H 128/76 Blood Pressure [Left] O2 Saturation 98 97 100 03/18/19 03/18/19 03/18/19 19:00 19:30 19:35 Temperature Heart Rate 72 77 79 Respiratory 20 15 15 Rate Blood Pressure 140/74 H 140/78 H Blood Pressure [Left] O2 Saturation 100 100 Oxygen O2 Source Room air - EKG (time done) 1614 Rate: Rate (enter#) (105) Rhythm: Sinus tachycardia [place]: Normal Intervals: Normal UT QRS: Normal Ischemia: Normal ST segments - Labs Labs: Laboratory Tests 03/18/19 03/18/19 03/18/19 16:46 16:46 16:46 WBC 7.6 RBC 4.75 Hgb 16.9 H Hct 49.8 H MCV 104.8 H MCH 35.6 H MCHC 33.9 RDW 12.9 Plt Count 185 MPV 10.5 Neut # (Auto) 4.8 Lymph # (Auto) 1.6 [place] # (Auto) 0.8 Eos # (Auto) 0.2 Baso # (Auto) 0.1 Absolute Nucleated RBC 0.00 Nucleated RBC % 0.0 D-Dimer Sodium 140 Potassium 4.4 Chloride 104 Carbon Dioxide 23 Anion Gap 13.0 BUN 9 Creatinine 0.6 Estimated GFR (MDRD) 102 Glucose 112 H Calcium 9.5 Total Bilirubin 0.5 AST 47 H ALT 35 Alkaline Phosphatase 86 Troponin I < 0.04 Troponin I High Sens Total Protein 6.8 Albumin 3.5 Globulin 3.3 Albumin/Globulin Ratio 1.1 Lipase 38 Urine Color Urine Clarity Urine pH Ur Specific [place] Urine Protein Urine Glucose (UA) Urine Ketones Urine Occult Blood Urine Nitrite Urine Bilirubin Urine Urobilinogen Ur Leukocyte Esterase Ur Microscopic Review Urine Culture Comments Ethyl Alcohol 03/18/19 03/18/19 03/18/19 16:46 16:46 16:46 WBC RBC Hgb Hct MCV MCH MCHC RDW Plt Count MPV Neut # (Auto) Lymph # (Auto) [place] # (Auto) Eos # (Auto) Baso # (Auto) Absolute Nucleated RBC Nucleated RBC % D-Dimer 321.4 H Sodium Potassium Chloride Carbon Dioxide Anion Gap BUN Creatinine Estimated GFR (MDRD) Glucose Calcium Total Bilirubin AST ALT Alkaline Phosphatase Troponin I Troponin I High Sens 3.6 Total Protein Albumin Globulin Albumin/Globulin Ratio Lipase Urine Color Urine Clarity Urine pH Ur Specific [place] Urine Protein Urine Glucose (UA) Urine Ketones Urine Occult Blood Urine Nitrite Urine Bilirubin Urine Urobilinogen Ur Leukocyte Esterase Ur Microscopic Review Urine Culture Comments Ethyl Alcohol 7.3 03/18/19 19:07 WBC RBC Hgb Hct MCV MCH MCHC RDW Plt Count MPV Neut # (Auto) Lymph # (Auto) [place] # (Auto) Eos # (Auto) Baso # (Auto) Absolute Nucleated RBC Nucleated RBC % D-Dimer Sodium Potassium Chloride Carbon Dioxide Anion Gap BUN Creatinine Estimated GFR (MDRD) Glucose Calcium Total Bilirubin AST ALT Alkaline Phosphatase Troponin I Troponin I High Sens Total Protein Albumin Globulin Albumin/Globulin Ratio Lipase Urine Color YELLOW Urine Clarity CLEAR Urine pH 6.0 Ur Specific [place] <=1.005 Urine Protein NEGATIVE Urine Glucose (UA) NEGATIVE Urine Ketones NEGATIVE Urine Occult Blood NEGATIVE Urine Nitrite NEGATIVE Urine Bilirubin NEGATIVE Urine Urobilinogen 0.2 (NORMAL) Ur Leukocyte Esterase NEGATIVE Ur Microscopic Review NOT INDICATED Urine Culture Comments NOT INDICATED Ethyl Alcohol - Rads (name of study) cxr Radiology: Prelim report reviewed, EMP read contemporaneously, See rad report (No acute cardiopulmonary disease seen. ) CT pulm angio Radiology: Prelim report reviewed, EMP read contemporaneously, See rad report (No evidence of acute pulmonary embolus. Centrilobular emphysema. Probable mild hepatic steatosis.) PD MEDICAL DECISION MAKING - ED course Complexity details: reviewed results, re-evaluated patient, considered differential (No ST elevation [place], no aortic dissection, no PE, no tension pneumothorax, no aortic aneurysm), d/w patient, d/w family ED course: 63-year-old female presents to the emergency department with difficulty breathing over the past few days. Also the chest and back pain. No hypoxia. No respiratory distress. Appears to have central lobar emphysema on CT Given a DuoNeb treatment. Feels slightly better. Will place on steroids and inhalers for home. Has never used inhalers before. Recommend that she quit smoking. We will have her follow-up with her doctor for further care. Patient counseled regarding signs and symptoms for which I believe and urgent re-evaluation would be necessary. Patient with good understanding of and agreement to plan and is c omfortable going home at this time This document was made in part using voice recognition software. While efforts are made to proofread this document, sound alike and grammatical errors may occur. Departure - Departure Disposition: 01 Home, Self Care Clinical Impression: Dehydration COPD (chronic obstructive pulmonary disease) Qualifiers: COPD type: unspecified COPD Qualified Code(s): J44.9 - Chronic obstructive pulmonary disease, unspecified Condition: Good Instructions: ED COPD Flare Follow-Up: Chandrakant Bolton MD [Primary Care Provider] - Within 1 week Prescriptions: Albuterol Sulf [Ventolin Hfa Inhaler] 1 - 2 puffs INH Q4HR PRN #1 inhaler PRN Reason: Shortness Of Air/Wheezing predniSONE [Deltasone] 10 mg PO [id number] #42 tab Comments: Use the medications as prescribed. Return if you worsen. Follow-up with your doctor for further care. Discharge Date/Time: 03/18/19 19:54
[2019-03-18] MEDS ORDERED: IOVERSOL 320 100 ML VIAL IVP ONE ×2 (17:46→18:02)
--- NOTE | 2019-03-18 18:22 | CT Report ---
Reason: dyspnea, poss PE Procedure Date: 03/18/2019 Accession Number: [id number] / [id number] Procedure: CT - ANGIO CHEST W/WO CPT Code: FULL RESULT: EXAM: CT ANGIOGRAM CHEST EXAM DATE: 03/18/2019 06:01 PM. CLINICAL HISTORY: Dyspnea, poss PE. COMPARISON: CHEST ANGIO 05/23/2016 10:18 PM CHEST 1 VIEW 03/18/2019 4:27 PM. TECHNIQUE: Routine helical imaging was performed through the chest in the pulmonary arterial phase. IV Contrast: OPTI 320 80 mL. Reconstructions: Coronal 3-D MIP reconstructions.Sagittal and coronal. In accordance with CT protocol optimization, one or more of the following dose reduction techniques were utilized for this exam: automated exposure control, adjustment of mA and/or KV based on patient size, or use of iterative reconstructive technique. FINDINGS: Pulmonary Arteries: Diagnostic quality: Adequate through the segmental arteries. No evidence for acute pulmonary emboli. Lungs/Pleura: No consolidation, pleural effusion, or pneumothorax. Linear scarring/atelectasis in the right middle lobe and lingula. Centrilobular emphysema. Mild diffuse prominence of the pulmonary interstitium likely related to chronic pulmonary disease. Mediastinum: Heart size is normal. No pericardial effusion. No mediastinal lymphadenopathy. Thoracic Aorta: Normal in course and caliber. Upper Abdomen: Mild low-attenuation of the liver. Other: The bones are osteopenic. No acute fracture or dislocation. Schmorl nodes involving the superior endplates of T11 and T12. IMPRESSION: No evidence of acute pulmonary embolus. Centrilobular emphysema. Probable mild hepatic steatosis. RADIA
[2019-03-18 19:13] LABS: BILIRUBIN,URINE NEGATIVE (NEGATIVE); GLUCOSE, URINE (UA) NEGATIVE (NEGATIVE); KETONES,URINE (UA) NEGATIVE (NEGATIVE); LEUKOCYTE ESTERASE, URINE NEGATIVE (NEGATIVE); NITRITE,URINE NEGATIVE (NEGATIVE); OCCULT BLOOD,URINE NEGATIVE (NEGATIVE); PROTEIN,URINE NEGATIVE (NEGATIVE); UROBILINOGEN,URINE 0.2 (NORMAL) E.U./dL (NORMAL)
[2019-03-18 19:19] LABS: CLARITY,URINE CLEAR (CLEAR)
[2019-03-18] MEDS ORDERED: IPRATROPIUM/ALBUTEROL 3 ML NEB INH STA (19:21)
[2019-03-18 19:43] VITALS: BP 140/78
== END 2019-03-18 19:54 | disposition home or self-care (01) ==
LOC: ED 16:03
DX: J43.2 Centrilobular emphysema (principal); E86.0 Dehydration; I10 Essential (primary) hypertension; F17.200 Nicotine dependence, unspecified, uncomplicated
CPT/HCPCS: 36415; 71045; 71275; 80053; 81003; 83690; 84484; 85025; 85379; 93005; 94640; 96360; 99284; Q9967; 80320; 81001; 87086

== ENCOUNTER 2019-06-29 11:46 | Outpatient (CLI) | payer MEDICARE, MEDICAID ==
[2019-06-29 12:23] LABS: BASOPHILS # (AUTO) 0.1 10^3/uL (0.0-0.1); BASOPHILS % (AUTO) 1.3 %; EOSINOPHILS # (AUTO) 0.1 10^3/uL (0.0-0.7); EOSINOPHILS % (AUTO) 1.8 %; HGB - HEMOGLOBIN 13.9 g/dL (12.0-16.0); LYMPHOCYTES # (AUTO) 1.1 10^3/uL (1.5-3.5); LYMPHOCYTES % (AUTO) 18.5 %; MEAN CORPUSCULAR HEMOGLOBIN 34.4 pg (27.0-31.0); MEAN CORPUSCULAR HGB CONC 32.7 g/dL (32.0-36.0); MEAN CORPUSCULAR VOLUME 105.2 fL (81.0-99.0); MEAN PLATELET VOLUME 10.3 fL (7.9-10.8); MONOCYTES # (AUTO) 0.6 10^3/uL (0.0-1.0); MONOCYTES % (AUTO) 10.1 %; NEUTROPHILS # (AUTO) 4.1 10^3/uL (1.5-6.6); NEUTROPHILS % (AUTO) 67.5 %; PLT - PLATELET COUNT 173 10^3/uL (130-450); RED BLOOD COUNT 4.04 10^6/uL (4.20-5.40); RED CELL DISTRIBUTION WIDTH 12.8 % (12.0-15.0)
[2019-06-29 12:43] LABS: ALBUMIN 3.6 g/dL (3.2-5.5); ALBUMIN/GLOBULIN RATIO 1.3 (1.0-2.2); ALKALINE PHOSPHATASE 66 IU/L (42-121); ALT ALANINE AMINOTRANSFERASE 34 IU/L (10-60); AST ASPARTATE AMINOTRANSFERASE 41 IU/L (10-42); BILIRUBIN,TOTAL 0.6 mg/dL (0.2-1.0); BUN - BLOOD UREA NITROGEN 11 mg/dL (6-20); CALCIUM 9.2 mg/dL (8.5-10.3); CARBON DIOXIDE - CO2 29 mmol/L (21-32); CHLORIDE 104 mmol/L (101-111); CHOL/HDL RATIO 2.6 (<4.4); CHOLESTEROL 237 mg/dL; CREATININE 0.7 mg/dL (0.4-1.0); GFR - MDRD 85 (>89); GLUCOSE 84 mg/dL (70-100); HDL CHOLESTEROL 91 mg/dL; LDL CHOLESTEROL,CALCULATED 117 mg/dL; LDL/HDL RATIO 1.3 (<4.4); SODIUM 142 mmol/L (135-145); TOTAL PROTEIN 6.4 g/dL (6.7-8.2); VLDL CHOLESTEROL 29 mg/dL
[2019-06-29 14:00] LABS: HB2 TOTAL 14.4 g/dL; HEMOGLOBIN A1C 0.49 g/dL; HEMOGLOBIN A1C % 5.3 % (4.6-6.2)
== END 2019-06-29 11:47 | disposition home or self-care (01) ==
LOC: LAB 11:46
PROVIDERS: ATTEND Internal Medicine
DX: E78.5 Hyperlipidemia, unspecified (principal); R73.01 Impaired fasting glucose; M12.9 Arthropathy, unspecified; R73.02 Impaired glucose tolerance (oral)
CPT/HCPCS: 36415; 80053; 80061; 83036; 83721; 85025

== ENCOUNTER 2019-10-24 12:52 | Outpatient (CLI) | payer MEDICARE, MEDICAID ==
[2019-10-24 13:14] LABS: BASOPHILS # (AUTO) 0.1 10^3/uL (0.0-0.1); BASOPHILS % (AUTO) 1.6 %; EOSINOPHILS # (AUTO) 0.1 10^3/uL (0.0-0.7); EOSINOPHILS % (AUTO) 2.4 %; HGB - HEMOGLOBIN 14.5 g/dL (12.0-16.0); LYMPHOCYTES # (AUTO) 1.4 10^3/uL (1.5-3.5); LYMPHOCYTES % (AUTO) 28.2 %; MEAN CORPUSCULAR HEMOGLOBIN 34.2 pg (27.0-31.0); MEAN CORPUSCULAR HGB CONC 33.3 g/dL (32.0-36.0); MEAN CORPUSCULAR VOLUME 102.6 fL (81.0-99.0); MEAN PLATELET VOLUME 9.8 fL (7.9-10.8); MONOCYTES # (AUTO) 0.6 10^3/uL (0.0-1.0); MONOCYTES % (AUTO) 11.8 %; NEUTROPHILS # (AUTO) 2.8 10^3/uL (1.5-6.6); NEUTROPHILS % (AUTO) 55.2 %; PLT - PLATELET COUNT 197 10^3/uL (130-450); RED BLOOD COUNT 4.24 10^6/uL (4.20-5.40); RED CELL DISTRIBUTION WIDTH 12.7 % (12.0-15.0); WHITE BLOOD COUNT 5.1 x10^3/uL (4.8-10.8)
[2019-10-24 13:24] LABS: ALBUMIN 3.7 g/dL (3.2-5.5); ALBUMIN/GLOBULIN RATIO 1.4 (1.0-2.2); BILIRUBIN,TOTAL 0.8 mg/dL (0.2-1.0); CALCIUM 8.8 mg/dL (8.5-10.3); CREATININE 0.8 mg/dL (0.4-1.0); TOTAL PROTEIN 6.4 g/dL (6.7-8.2)
== END 2019-10-24 12:53 | disposition home or self-care (01) ==
LOC: LAB 12:52
PROVIDERS: ATTEND Internal Medicine
DX: D75.1 Secondary polycythemia (principal); E03.9 Hypothyroidism, unspecified; R94.5 Abnormal results of liver function studies; I10 Essential (primary) hypertension
CPT/HCPCS: 36415; 80053; 84443; 85025

== ENCOUNTER 2020-04-02 13:38 | Outpatient (CLI) | payer MEDICARE, MEDICAID ==
[2020-04-02 14:08] LABS: BASOPHILS # (AUTO) 0.1 10^3/uL (0.0-0.1); BASOPHILS % (AUTO) 0.8 %; EOSINOPHILS # (AUTO) 0.1 10^3/uL (0.0-0.7); EOSINOPHILS % (AUTO) 1.6 %; HGB - HEMOGLOBIN 14.5 g/dL (12.0-16.0); LYMPHOCYTES # (AUTO) 1.6 10^3/uL (1.5-3.5); MEAN CORPUSCULAR HEMOGLOBIN 34.7 pg (27.0-31.0); MEAN CORPUSCULAR VOLUME 105.3 fL (81.0-99.0); MEAN PLATELET VOLUME 10.7 fL (7.9-10.8); MONOCYTES # (AUTO) 0.7 10^3/uL (0.0-1.0); MONOCYTES % (AUTO) 10.4 %; NEUTROPHILS # (AUTO) 3.8 10^3/uL (1.5-6.6); NEUTROPHILS % (AUTO) 60.7 %; PLT - PLATELET COUNT 187 10^3/uL (130-450); RED BLOOD COUNT 4.18 10^6/uL (4.20-5.40); RED CELL DISTRIBUTION WIDTH 12.8 % (12.0-15.0); WHITE BLOOD COUNT 6.3 x10^3/uL (4.8-10.8)
[2020-04-02 14:23] LABS: ALBUMIN 3.7 g/dL (3.2-5.5); ALBUMIN/GLOBULIN RATIO 1.2 (1.0-2.2); BILIRUBIN,TOTAL 0.7 mg/dL (0.2-1.0); CALCIUM 9.4 mg/dL (8.5-10.3); CREATININE 0.8 mg/dL (0.4-1.0); TOTAL PROTEIN 6.7 g/dL (6.7-8.2)
== END 2020-04-02 13:39 | disposition home or self-care (01) ==
LOC: LAB 13:38
PROVIDERS: ATTEND Internal Medicine
DX: E03.9 Hypothyroidism, unspecified (principal); I10 Essential (primary) hypertension
CPT/HCPCS: 36415; 80053; 84443; 85025